=== PATIENT | female | born 2000 | race Caucasian/White ===

== ENCOUNTER 2021-11-23 13:02 | Outpatient (CLI) | payer BC, SELFPAY ==
--- NOTE | ~2021-11-23 | US_ITS ---
US breast LT limited DATE: 11/23/2021 13:32 INDICATION: Diffuse cystic mastopathy of left breast. Pinpoint 3:00 tenderness. TECHNIQUE: Real-time imaging targeted at 3:00 position at complaint of tenderness COMPARISON: None FINDINGS: No suspicious mass, shadowing, cyst or other significant sonographic finding is noted. IMPRESSION: BI-RADS Category 1: Negative Reviewed, dictated and finalized at [facility]. Reviewed, dictated and finalized at [facility].
== END 2021-11-23 13:03 | disposition home or self-care (01) ==
PROVIDERS: Visit Provider Nurse Practitioner Psychiatric/Mental Health
DX: N60.12 Diffuse cystic mastopathy of left breast (principal)
CPT/HCPCS: 76642